=== PATIENT | male | born 1955 | race Native Hawaiian/Other Pacific Islander ===

== ENCOUNTER 2019-08-02 10:15 | Outpatient (CLI) | payer OTHER | END 2019-08-02 20:09 | disposition home or self-care (01) | LOC: RAD 10:15 | DX: R05 Cough (principal) ==

== ENCOUNTER 2021-10-17 09:09 | Outpatient (CLI) | payer BC | END 2021-10-17 20:39 | disposition home or self-care (01) | LOC: RAD 09:09 | PROVIDERS: ATTEND Nurse Practitioner Primary Care | DX: M54.59 Other low back pain (principal) ==

== ENCOUNTER 2021-11-29 08:30 | Outpatient (CLI) | payer BC | END 2021-11-29 18:52 | disposition home or self-care (01) | LOC: US 08:30 | PROVIDERS: ATTEND Nurse Practitioner Primary Care | DX: N28.89 Other specified disorders of kidney and ureter (principal) ==

== ENCOUNTER 2022-09-25 10:41 | Outpatient (CLI) | payer BC, OTHER | END 2022-09-25 22:27 | disposition home or self-care (01) | LOC: US 10:41 | PROVIDERS: ATTEND Nurse Practitioner Primary Care | DX: Z13.6 Encounter for screening for cardiovascular disorders (principal); N28.1 Cyst of kidney, acquired ==

== ENCOUNTER 2023-05-19 15:45 | Outpatient (CLI) | payer OTHER ==
[2023-05-19 16:00] LABS: PLATELET COUNT 182 K/uL (142-355)
[2023-05-19 16:21] LABS: POTASSIUM 3.9 mmol/L (3.6-5.2)
== END 2023-05-19 19:13 | disposition home or self-care (01) ==
LOC: LABW 15:45
PROVIDERS: ATTEND Nurse Practitioner Family
DX: U07.1 COVID-19 (principal)
CPT/HCPCS: 36415; 80048; 85027